=== PATIENT | female | born 1950 | race Caucasian/White ===

== ENCOUNTER 2022-06-10 06:09 | Day surgery (SDC) | payer OTHER, MEDICARE ==
[2022-06-05 17:25] VITALS: BMI 25.4
[2022-06-10] MEDS ORDERED: BUPIVACAINE HCL/PF 0.5% (5MG/ML) 10 ML VIAL ONE (07:19)
[2022-06-10] MEDS ORDERED: BUPIVACAINE LIPOSOME/PF (EXPAREL) 266 MG/20 ML VIAL ONE (07:19)
[2022-06-10] MEDS ORDERED: MIDAZOLAM HCL 2 MG/2 ML SINGLE DOSE VIAL ONE ×2 (07:19→08:07)
[2022-06-10] MEDS ORDERED: SODIUM CHLORIDE 0.9% P/F 10 ML VIAL IJ ONE (07:20)
[2022-06-10] MEDS ORDERED: ceFAZolin SODIUM 1 GM VIAL ONE (07:57)
[2022-06-10] MEDS ORDERED: ONDANSETRON 4 MG/2 ML VIAL ONE (07:57)
[2022-06-10] MEDS ORDERED: TRANEXAMIC ACID 1000 MG/10 ML VIAL IVPUSH ONE (08:00)
[2022-06-10] MEDS ORDERED: CEFAZOLIN 2 GM in DEXTROSE 5%-WATER - 50 ML IVPB ONE (08:00)
[2022-06-10] MEDS ORDERED: PROPOFOL 60 ML ONE (08:04)
[2022-06-10] MEDS ORDERED: ONDANSETRON 4 MG/2 ML VIAL IVPUSH PRN ×2 (10:01→10:21)
[2022-06-10] MEDS ORDERED: MAG HYDROX/AL HYDROX/SIMETH 30 ML UNIT-DOSE CUP PO PRN (10:01)
[2022-06-10] MEDS ORDERED: MAGNESIUM HYDROX 2400MG/30ML ORAL SUSPENSION 30 ML CUP PO PRN (10:01)
[2022-06-10] MEDS ORDERED: oxyCODONE HCL 5 MG TABLET PO PRN ×3 (10:12→10:21)
[2022-06-10] MEDS ORDERED: LACTATED RINGERS SOLUTION 1,000 ML IV SCH (10:15)
[2022-06-10] MEDS ORDERED: PROMETHAZINE HCL 25 MG/1 ML VIAL IVPUSH PRN (10:21)
[2022-06-10] MEDS ORDERED: FENTANYL CITRATE/PF 50 MCG/ML VIAL ONE (11:09)
[2022-06-10] MEDS: oxyCODONE HCL 5 MG TABLET PO PRN ×4 (14:10→22:54)
[2022-06-10] MEDS: CEFAZOLIN SODIUM 2 GM in DEXTROSE 5%-WATER 100 ML IVPB SCH (16:22)
[2022-06-10] MEDS ORDERED: ACETAMINOPHEN 1000 MG/100 ML BAG IVPB SCH (17:00)
[2022-06-10] MEDS: ACETAMINOPHEN 1000 MG/100 ML BAG IVPB SCH (17:19)
[2022-06-10 19:52] VITALS: RESP 18
[2022-06-10] MEDS: ASPIRIN COATED 81 MG TABLET.EC PO SCH (21:27)
[2022-06-10] MEDS: FAMOTIDINE 20 MG TABLET PO SCH (21:28)
[2022-06-10] MEDS: ATENOLOL 50 MG TABLET (FP) PO SCH (21:28)
[2022-06-10] MEDS: SENNOSIDES/DOCUSATE COMBO (SENNA PLUS) TABLET (UD) PO SCH (21:28)
[2022-06-10] MEDS ORDERED: LOSARTAN POTASSIUM 25 MG TABLET PO SCH (22:00)
[2022-06-10] MEDS ORDERED: MAGNESIUM OXIDE 400 MG TABLET (FP) PO SCH (22:00)
[2022-06-11] MEDS: ACETAMINOPHEN 1000 MG/100 ML BAG IVPB SCH ×2 (00:07→06:52)
[2022-06-11] MEDS: CEFAZOLIN SODIUM 2 GM in DEXTROSE 5%-WATER 100 ML IVPB SCH (00:08)
[2022-06-11] MEDS: oxyCODONE HCL 5 MG TABLET PO PRN ×3 (03:22→09:37)
[2022-06-11 08:02] LABS: CALCIUM 8.9 mg/dl (8.5-10); CREATININE 0.8 mg/dl (0.55-1.3)
[2022-06-11 08:03] LABS: HEMATOCRIT 42.8 % (32.4-45.2); HEMOGLOBIN 14.8 G/dL (10.7-15.3); MCH 34.2 pg (25.7-33.7); MCHC 34.6 g/dl (32.0-36.0); MEAN CELL VOLUME 98.9 fl (80-96); MEAN PLT VOLUME 8.6 fl (7.5-11.1); PLATELET COUNT 187.2 10^3/uL (134-434); RBC 4.33 10^6/uL (3.60-5.2); RDW 13.3 % (11.6-15.6); WHITE BLOOD COUNT 9.5 10^3/uL (4.0-10.8)
[2022-06-11 09:32] VITALS: PULSE 72; TEMP 98.4
[2022-06-11] MEDS: FAMOTIDINE 20 MG TABLET PO SCH (09:37)
[2022-06-11] MEDS: SENNOSIDES/DOCUSATE COMBO (SENNA PLUS) TABLET (UD) PO SCH (09:37)
[2022-06-11] MEDS: ASPIRIN COATED 81 MG TABLET.EC PO SCH (09:37)
[2022-06-11] MEDS: ATENOLOL 50 MG TABLET (FP) PO SCH (09:50)
[2022-06-11] MEDS ORDERED: HYDROCHLOROTHIAZIDE 12.5 MG CAPSULE (FP) PO SCH (10:00)
[2022-06-11] MEDS ORDERED: CELECOXIB 200 MG CAPSULE PO SCH (10:00)
[2022-06-11] MEDS ORDERED: MULTIVITAMINS (DAILY MVI) TABLET (FP) PO SCH (10:00)
[2022-06-11 12:11] VITALS: BP 120/63
== END 2022-06-11 12:22 | disposition home or self-care (01) ==
LOC: FASUSAT 06:09 → EDSTATUS 10:15 → FM/S 12:24 → FASUSAT 06-11 12:22
PROVIDERS: ATTEND Orthopaedic Surgery
PROC: 0SRC0J9 Replacement of Right Knee Joint with Synthetic Substitute, Cemented, Open Approach (ICD-10-PCS; principal; 2022-06-10 08:13)
DX: M17.11 Unilateral primary osteoarthritis, right knee (principal)
CPT/HCPCS: 27447; C1776; 36415; 73560-TC-RT-FY; 80048; 85027; 88304-TC; 88311-TC; 94760; 97010-GP; 97116-GP; 97162-GP; C1889

== ENCOUNTER 2023-07-07 06:04 | Day surgery (SDC) | payer OTHER ==
[2023-06-29 14:07] VITALS: BMI 26.2
[2023-07-07] MEDS ORDERED: CEFAZOLIN 2 GM in DEXTROSE 5%-WATER - 50 ML IVPB ONE (07:00)
[2023-07-07] MEDS ORDERED: MIDAZOLAM HCL 2 MG/2 ML SINGLE DOSE VIAL ONE (07:46)
[2023-07-07] MEDS ORDERED: BUPIVACAINE LIPOSOME/PF (EXPAREL) 266 MG/20 ML VIAL ONE (07:46)
[2023-07-07] MEDS ORDERED: BUPIVACAINE HCL/PF 0.5% (5MG/ML) 10 ML VIAL ONE (07:46)
[2023-07-07] MEDS ORDERED: TRANEXAMIC ACID 1000 MG/10 ML VIAL IVPUSH ONE (08:00)
[2023-07-07] MEDS ORDERED: ONDANSETRON 4 MG/2 ML VIAL IVPUSH PRN ×2 (08:10→14:12)
[2023-07-07] MEDS ORDERED: ACETAMINOPHEN 1000 MG/100 ML BAG IVPB ONE (08:11)
[2023-07-07] MEDS ORDERED: oxyCODONE HCL 5 MG TABLET PO PRN ×2 (08:11)
[2023-07-07] MEDS ORDERED: LACTATED RINGERS SOLUTION 1,000 ML IV SCH (08:15)
[2023-07-07] MEDS ORDERED: TRANEXAMIC ACID 1000 MG/10 ML VIAL ONE (08:40)
[2023-07-07] MEDS ORDERED: DEXAMETHASONE SOD PHOSPHATE 4 MG/1 ML VIAL ONE (08:40)
[2023-07-07] MEDS ORDERED: ceFAZolin SODIUM 1 GM VIAL ONE (08:40)
[2023-07-07] MEDS ORDERED: PROPOFOL 20 ML ONE ×2 (08:43→09:27)
[2023-07-07] MEDS ORDERED: oxyCODONE HCL 10 MG SUSTAINED ACTING TABLET PO SCH (10:00)
[2023-07-07] MEDS ORDERED: MAG HYDROX/AL HYDROX/SIMETH 30 ML UNIT-DOSE CUP PO PRN (10:26)
[2023-07-07] MEDS ORDERED: MAGNESIUM HYDROX 2400MG/30ML ORAL SUSPENSION 30 ML CUP PO PRN (10:26)
[2023-07-07] MEDS ORDERED: TAPENTADOL HYDROCHLORIDE 50 MG TABLET PO PRN (10:38)
[2023-07-07] MEDS ORDERED: KETOROLAC TROMETHAMINE 30 MG/1 ML VIAL ONE (10:42)
[2023-07-07] MEDS ORDERED: ACETAMINOPHEN INJECTION 100 ML IVPB ONE (10:43)
[2023-07-07] MEDS ORDERED: TAPENTADOL HYDROCHLORIDE 50 MG TABLET PO ONE (11:06)
[2023-07-07] MEDS: KETOROLAC TROMETHAMINE 30 MG/1 ML VIAL IVPUSH SCH ×2 (12:00→17:26)
[2023-07-07] MEDS: SODIUM CHLORIDE 1,000 ML IV SCH (12:30)
[2023-07-07] MEDS: ACETAMINOPHEN 500 MG TABLET (FP) PO SCH ×2 (17:28→23:28)
[2023-07-07] MEDS: CEFAZOLIN SODIUM 2 GM in DEXTROSE 5%-WATER 100 ML IVPB SCH (17:29)
[2023-07-07] MEDS: traMADol HCL 50 MG TABLET PO PRN (20:06)
[2023-07-07] MEDS: ATENOLOL 50 MG TABLET (FP) PO SCH (21:22)
[2023-07-07] MEDS: ASPIRIN 81 MG CHEWABLE TABLETS PO SCH (21:22)
[2023-07-07] MEDS: SENNOSIDES/DOCUSATE COMBO (SENNA PLUS) TABLET (UD) PO SCH (21:22)
[2023-07-07] MEDS: FAMOTIDINE 20 MG TABLET PO SCH (21:22)
[2023-07-07] MEDS ORDERED: LOSARTAN POTASSIUM 50 MG TABLET PO SCH (22:00)
[2023-07-08] MEDS: CEFAZOLIN SODIUM 2 GM in DEXTROSE 5%-WATER 100 ML IVPB SCH (00:51)
[2023-07-08] MEDS: KETOROLAC TROMETHAMINE 30 MG/1 ML VIAL IVPUSH SCH (01:02)
[2023-07-08 01:51] VITALS: RESP 18
[2023-07-08] MEDS: ACETAMINOPHEN 500 MG TABLET (FP) PO SCH (06:03)
[2023-07-08] MEDS: ASPIRIN 81 MG CHEWABLE TABLETS PO SCH (09:17)
[2023-07-08] MEDS: FAMOTIDINE 20 MG TABLET PO SCH (09:17)
[2023-07-08] MEDS: ATENOLOL 50 MG TABLET (FP) PO SCH (09:18)
[2023-07-08] MEDS: traMADol HCL 50 MG TABLET PO PRN (09:18)
[2023-07-08] MEDS: SENNOSIDES/DOCUSATE COMBO (SENNA PLUS) TABLET (UD) PO SCH (09:18)
[2023-07-08 09:42] VITALS: BP 128/62; PULSE 57; TEMP 97.3
[2023-07-08] MEDS ORDERED: MULTIVITAMINS (DAILY MVI) TABLET (FP) PO SCH (10:00)
[2023-07-08] MEDS ORDERED: HYDROCHLOROTHIAZIDE 25 MG TABLET (FP) PO SCH (10:00)
[2023-07-08] MEDS ORDERED: DEXAMETHASONE 4 MG TABLET (FP) PO ONE (10:00)
[2023-07-08] MEDS: SODIUM CHLORIDE 1,000 ML IV SCH (11:19)
== END 2023-07-08 11:17 | disposition home or self-care (01) ==
LOC: FASUSAT 06:04 → FM/S 13:19 → FASUSAT 07-08 11:17
PROVIDERS: ATTEND Orthopaedic Surgery
PROC: 0SRC0L9 Replacement of Right Knee Joint with Medial Unicondylar Synthetic Substitute, Cemented, Open Approach (ICD-10-PCS; 2023-07-07)
PROC: 0SPC0LZ Removal of Medial Unicondylar Synthetic Substitute from Right Knee Joint, Open Approach (ICD-10-PCS; principal; 2023-07-07 08:59)
DX: M25.561 Pain in right knee (principal); Z96.651 Presence of right artificial knee joint
CPT/HCPCS: 73560-TC-RT-FY; 94760; 97010-GP; 97116-GP; 97162-GP; C1776; C1889